=== PATIENT | female | born 1965 | race Caucasian/White ===

== ENCOUNTER 2022-06-01 12:42 | Inpatient (IN) | payer BC, OTHER ==
[~2022-06-01] VITALS: Ht 180.3 cm; Wt 111.3 kg
[2022-06-01 15:26] LABS: HEMOGLOBIN 12.6 gm/dl (12.3-15.3); RED BLOOD COUNT 4.44 M/UL (4.00-5.10); WHITE BLOOD COUNT 18.4 K/UL (4.5-11.0)
[2022-06-02 06:42] LABS: HEMOGLOBIN 11.7 gm/dl (12.3-15.3); RED BLOOD COUNT 4.23 M/UL (4.00-5.10)
[2022-06-02 06:51] LABS: WHITE BLOOD COUNT 8.9 K/UL (4.5-11.0)
[2022-06-02 08:08] LABS: ADENOVIRUS F 40/41 Not Detected (Negative); ASTROVIRUS Not Detected (Negative); CAMPYLOBACTER Not Detected (Negative); CRYPTOSPORIDIUM Not Detected (Negative); E.COLI 0157 Not Detected (Negative); ENTAMOEBA HISTOLYTICA Not Detected (Negative); ENTEROAGGREGATIVE E.COLI (EAEC Not Detected (Negative); ENTEROPATHOGENIC E.COLI (EPEC) Not Detected (Negative); ENTEROTOXIGENIC E.COLI (ETEC) Not Detected (Negative); GIARDIA LAMBLIA Not Detected (Negative); PLESIOMONAS SHIGELLOIDES Not Detected (Negative); ROTOVIRUS A Not Detected (Negative); SALMONELLA Not Detected (Negative); SAPOVIRUS Not Detected (Negative); SHIG/ENTEROINVAS.ECOLI (EIEC) Not Detected (Negative); SHIGA-LIK TOX.PRO.E.COLI (STEC Not Detected (Negative); VIBRIO Not Detected (Negative); VIBRIO CHOLERAE Not Detected (Negative); YERSINIA ENTEROCOLITICA Not Detected (Negative)
[2022-06-02 11:07] LABS: NOROVIRUS GI/GII DETECTED (Negative)
[2022-06-02] MEDS ORDERED: BUMETANIDE1 MG PO (11:15)
[2022-06-02] MEDS ORDERED: TRULICITY0.75 MG/0. SQ (11:15)
[2022-06-02] MEDS ORDERED: B-121000 MCG PO (11:15)
[2022-06-02] MEDS ORDERED: FLUOXETINE HCL40 MG PO (11:16)
[2022-06-02] MEDS ORDERED: GLYBURIDE5 MG PO (11:16)
[2022-06-02] MEDS ORDERED: LISINOPRIL20 MG PO (11:17)
[2022-06-02] MEDS ORDERED: MAGOX 400400 MG PO (11:17)
[2022-06-02] MEDS ORDERED: METFORMIN HCL1000 MG PO (11:18)
[2022-06-02] MEDS ORDERED: PROTONIX 40 MG40 M1 PO (11:18)
[2022-06-02] MEDS ORDERED: SPIRONOLACTONE25 MG PO (11:19)
[2022-06-02] MEDS ORDERED: DRISDOL1250 MCG PO (11:19)
[2022-06-02] MEDS ORDERED: IBU800 MG PO (11:19)
[2022-06-03 09:32] LABS: BUN/CREATININE RATIO 33 (0-10)
[2022-06-03] MEDS ORDERED: HYDRALAZINE HCL25 MG PO (09:36)
[2022-06-03] MEDS ORDERED: PHENERGAN 25 MG25 M1 PO (09:58)
== END 2022-06-03 12:42 | disposition home or self-care (01) | DRG 683 ==
LOC: ER1 12:42 → MED SURG 4 20:47 → CDU 20:47 → MED SURG 4 06-02 00:20
PROVIDERS: Emergency Medicine; Internal Medicine; ADMIT Internal Medicine
DX: N17.9 Acute kidney failure, unspecified (principal); A08.11 Acute gastroenteropathy due to Norwalk agent; E87.1 Hypo-osmolality and hyponatremia; N20.0 Calculus of kidney; F32.A Depression, unspecified; I10 Essential (primary) hypertension; M16.9 Osteoarthritis of hip, unspecified; E11.65 Type 2 diabetes mellitus with hyperglycemia; F41.9 Anxiety disorder, unspecified; K21.9 Gastro-esophageal reflux disease without esophagitis; E55.9 Vitamin D deficiency, unspecified; I95.9 Hypotension, unspecified; E86.0 Dehydration; E66.9 Obesity, unspecified; R31.9 Hematuria, unspecified; Z68.34 Body mass index [BMI] 34.0-34.9, adult; Z90.49 Acquired absence of other specified parts of digestive tract; Z79.899 Other long term (current) drug therapy
CPT/HCPCS: 71045; 80048; 80053; 81001; 82436; 82550; 82565; 82962; 83874; 84133; 84300; 84550; 85025; 87086; 87449; 87507; 99285; J1644; U0002